=== PATIENT | female | born 1940 | race Caucasian/White ===

== ENCOUNTER → 2017-11-27 | Day surgery (SDC) | payer MEDICARE, BC ==
[~2017-11-27] MED LIST: Lactated Ringers 1,000 ML IV SCH
--- NOTE | 2017-11-27 10:56 | OR ---
DATE OF OPERATION: 11/27/2017 PREOPERATIVE DIAGNOSIS: 1. GASTROESOPHAGEAL REFLUX DISEASE. 2. ABDOMINAL PAIN. POSTOPERATIVE DIAGNOSIS: 1. GASTROESOPHAGEAL REFLUX DISEASE. 2. ABDOMINAL PAIN. SURGEON: Mj Munoz MD PROCEDURE: 1. EGD WITH BIOPSIES X2, JULIUS. 2. FULL-LENGTH COLONOSCOPY. 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 COMPLICATIONS: None. SPECIMEN: 1. Antral biopsy x2. 2. JULIUS. FINDINGS: 1. Full-length EGD. 2. Moderate antral gastritis, active, without ulceration. 3. Moderate-sized hiatal hernia without stricture or distal esophagitis. 4. Full-length colonoscopy. 5. Ponce-diverticulosis, moderate. RECOMMENDATIONS: Medical followup with Dr. Cazares. Routine colonoscopy on an as- needed basis only at this point. INDICATIONS: The patient has been having some persistent reflux and belching. She is also due for a colonoscopy, and she has been having some abdominal pain. Dr. aCzares sent her for both upper and lower procedures. DESCRIPTION OF PROCEDURE: The patient was prepped and draped, placed in the left lateral decubitus position. A lubricated Olympus gastroscope was inserted over a bit and advanced to cricopharyngeus area and easily intubating the esophagus. Esophageal lining was benign in its entire course. The Z-line was crisp and sharp at 37 cm. No distal esophagitis, stricturing, ulceration, or Reeves's changes were seen. The hernia was moderate sized with spontaneous GERD seen. The scope was advanced into the stomach through the pylorus and into the second portion of the duodenum. This and the duodenal bulb were benign. The scope was brought back into the stomach and retroflexed. The upper fundus and cardia were unremarkable, other than the hernia seen from below. Upon straightening, the rest of the fundus was unremarkable. The patient has active gastritis of the antrum without any obvious ulceration or erosions. Two biopsies were taken along with a JULIUS test. Air was suctioned, and the scope was removed without complication. A lubricated Olympus colonoscope was then inserted and easily advanced to the cecum. Direct visualization of the ileocecal valve and appendiceal orifice was accomplished. The bowel prep was adequate. Upon withdrawal of the scope, the patient does have ponce-diverticular disease all the way to the cecal area, moderate in severity, and most significant in the sigmoid as expected. Throughout the length of the colon, I could find no signs of any polyps, mass, ulceration, or bleeding sites. There were no vascular abnormalities or signs of colitis. The rectal vault was unremarkable. Retroflexion of the scope in the rectum showed no anal lesions. Air was suctioned and scope removed without complication. ANGELA/JOJO /[id number]
== END ==
LOC: CC.SDS 07:29
PROVIDERS: ATTEND Family Medicine
DX: K29.50 Unspecified chronic gastritis without bleeding (principal); K44.9 Diaphragmatic hernia without obstruction or gangrene; K57.30 Diverticulosis of large intestine without perforation or abscess without bleeding; Z88.1 Allergy status to other antibiotic agents; Z88.8 Allergy status to other drugs, medicaments and biological substances; Z79.899 Other long term (current) drug therapy
CPT/HCPCS: 82962; 87081; J7120